=== PATIENT | female | born 1950 | race Caucasian/White ===

== ENCOUNTER 2016-12-02 08:45 | Outpatient (CLI) | payer OTHER | END 2016-12-02 08:46 | disposition home or self-care (01) | LOC: LAB.WCP 08:45 | PROVIDERS: ATTEND Family Medicine | DX: R19.7 Diarrhea, unspecified (principal) | CPT/HCPCS: 87045; 87046; 87177; 87209; 87493 ==

== ENCOUNTER 2016-12-15 08:00 | Outpatient (CLI) | payer OTHER ==
[2016-12-15 13:34] LABS: HEMOGLOBIN A1C 0.53 g/dL
[2016-12-15 13:37] LABS: BASOPHILS # (AUTO) 0.1 10^3/uL (0.0-0.1); BASOPHILS % (AUTO) 1.1 %; EOSINOPHILS # (AUTO) 0.1 10^3/uL (0.0-0.7); EOSINOPHILS % (AUTO) 1.7 %; HCT - HEMATOCRIT 39.7 % (37.0-47.0); HGB - HEMOGLOBIN 13.6 g/dL (12.0-16.0); LYMPHOCYTES # (AUTO) 2.1 10^3/uL (1.5-3.5); LYMPHOCYTES % (AUTO) 31.9 %; MEAN CORPUSCULAR HEMOGLOBIN 30.7 pg (27.0-31.0); MEAN CORPUSCULAR HGB CONC 34.2 g/dL (32.0-36.0); MEAN PLATELET VOLUME 7.6 fL (7.9-10.8); MONOCYTES # (AUTO) 0.5 10^3/uL (0.0-1.0); MONOCYTES % (AUTO) 8.3 %; NEUTROPHILS # (AUTO) 3.7 10^3/uL (1.5-6.6); NUCLEATED RED BLOOD CELLS AUTO 0.1 /100WBC; RED BLOOD COUNT 4.41 10^6/uL (4.20-5.40); RED CELL DISTRIBUTION WIDTH 12.9 % (12.0-15.0); UNCORRECTED WHITE BLOOD COUNT 6.5 x10^3/uL; WHITE BLOOD COUNT 6.5 x10^3/uL (4.8-10.8)
[2016-12-15 13:43] LABS: ALBUMIN/GLOBULIN RATIO 1.6 (1.0-2.2); BILIRUBIN,TOTAL 0.7 mg/dL (0.2-1.0); BUN - BLOOD UREA NITROGEN 13 mg/dL (6-20); CALCIUM 9.2 mg/dL (8.5-10.3); CARBON DIOXIDE - CO2 24 mmol/L (21-32); CHLORIDE 109 mmol/L (101-111); CHOL/HDL RATIO 3.1 (<4.4); CHOLESTEROL 242 mg/dL; CREATININE 0.6 mg/dL (0.4-1.0); GFR - MDRD 100 (>89); GLUCOSE 94 mg/dL (70-100); HDL CHOLESTEROL 77 mg/dL; LDL/HDL RATIO 1.9 (<4.4); POTASSIUM 4.2 mmol/L (3.5-5.0); SODIUM 141 mmol/L (135-145); TOTAL PROTEIN 6.5 g/dL (6.7-8.2); TRIGLYCERIDES 91 mg/dL; VLDL CHOLESTEROL 18 mg/dL
== END 2016-12-15 08:01 | disposition home or self-care (01) ==
LOC: LAB.WCP 08:00
PROVIDERS: ATTEND Family Medicine
DX: R63.4 Abnormal weight loss (principal); Z78.9 Other specified health status
CPT/HCPCS: 36415; 80053; 80061; 83036; 84443; 84550; 85025; 86803; 87389

== ENCOUNTER 2016-12-17 11:31 | Outpatient (CLI) | payer OTHER ==
--- NOTE | 2016-12-18 13:07 | Mammography Report ---
DIGITAL SCREENING MAMMOGRAM: 12/17/2016 CLINICAL INDICATION: A 66-year-old with history of bilateral implants for screening. COMPARISON: 12/2015, 12/2014, 11/2013, 11/2012, 10/2011, 10/2010, 10/2009, 10/2008, 10/2007. TECHNIQUE: Routine CC and MLO projections were obtained of the breasts as well as bilateral implant displaced views. FINDINGS: The breasts demonstrate fatty replacement bilaterally. Bilateral subpectoral implants are stable. No suspicious masses, clustered microcalcifications, or regions of architectural distortion are identified. IMPRESSION: BENIGN FINDINGS. RECOMMENDATION: Routine annual screening unless otherwise clinically indicated. BIRADS CATEGORY 2 - BENIGN FINDINGS. STANDARD QUALIFYING STATEMENTS 1. This examination was reviewed with the aid of Computer-Aided Detection (CAD). 2. A negative or benign imaging report should not delay biopsy if clinically suspicious findings are present. Consider surgical consultation if warranted. More than 5% of cancers are not identified by i maging. 3. Dense breasts may obscure an underlying neoplasm. JOB #: [id number] EXT JOB #:[id number]
== END 2016-12-17 11:32 | disposition home or self-care (01) ==
LOC: DI 11:31
PROVIDERS: ATTEND Family Medicine
DX: Z12.31 Encounter for screening mammogram for malignant neoplasm of breast (principal); Z98.82 Breast implant status
CPT/HCPCS: 77067

== ENCOUNTER 2017-11-10 08:00 | Outpatient (CLI) | payer OTHER ==
[2017-11-10 12:57] LABS: BASOPHILS % (AUTO) 0.9 %; EOSINOPHILS # (AUTO) 0.1 10^3/uL (0.0-0.7); EOSINOPHILS % (AUTO) 1.6 %; HGB - HEMOGLOBIN 13.5 g/dL (12.0-16.0); LYMPHOCYTES # (AUTO) 1.7 10^3/uL (1.5-3.5); LYMPHOCYTES % (AUTO) 29.7 %; MEAN CORPUSCULAR HGB CONC 33.9 g/dL (32.0-36.0); MEAN CORPUSCULAR VOLUME 91.3 fL (81.0-99.0); MEAN PLATELET VOLUME 7.9 fL (7.9-10.8); MONOCYTES # (AUTO) 0.5 10^3/uL (0.0-1.0); MONOCYTES % (AUTO) 8.7 %; NEUTROPHILS # (AUTO) 3.3 10^3/uL (1.5-6.6); NEUTROPHILS % (AUTO) 59.1 %; PLT - PLATELET COUNT 304 10^3/uL (130-450); RED BLOOD COUNT 4.35 10^6/uL (4.20-5.40); RED CELL DISTRIBUTION WIDTH 13.1 % (12.0-15.0); WHITE BLOOD COUNT 5.7 x10^3/uL (4.8-10.8)
[2017-11-10 13:01] LABS: ALBUMIN 4.1 g/dL (3.2-5.5); ALBUMIN/GLOBULIN RATIO 1.6 (1.0-2.2); ALKALINE PHOSPHATASE 68 IU/L (42-121); ALT ALANINE AMINOTRANSFERASE 17 IU/L (10-60); AST ASPARTATE AMINOTRANSFERASE 21 IU/L (10-42); BILIRUBIN,TOTAL 0.7 mg/dL (0.2-1.0); BUN - BLOOD UREA NITROGEN 16 mg/dL (6-20); CALCIUM 9.1 mg/dL (8.5-10.3); CARBON DIOXIDE - CO2 27 mmol/L (21-32); CHLORIDE 107 mmol/L (101-111); CHOL/HDL RATIO 2.8 (<4.4); CHOLESTEROL 210 mg/dL; CREATININE 0.7 mg/dL (0.4-1.0); GFR - MDRD 83 (>89); GLUCOSE 86 mg/dL (70-100); HDL CHOLESTEROL 74 mg/dL; LDL CHOLESTEROL,CALCULATED 121 mg/dL; LDL/HDL RATIO 1.6 (<4.4); SODIUM 141 mmol/L (135-145); TOTAL PROTEIN 6.6 g/dL (6.7-8.2); VLDL CHOLESTEROL 15 mg/dL
[2017-11-10 13:08] LABS: THYROID STIMULATING HORMONE 1.48 uIU/mL (0.34-5.60)
== END 2017-11-10 08:01 | disposition home or self-care (01) ==
LOC: LAB.WCP 08:00
PROVIDERS: ATTEND Family Medicine
DX: M81.0 Age-related osteoporosis without current pathological fracture (principal); E78.5 Hyperlipidemia, unspecified; R20.2 Paresthesia of skin
CPT/HCPCS: 36415; 80053; 80061; 82607; 83721; 84443; 85025

== ENCOUNTER 2018-01-12 13:10 | Outpatient (CLI) | payer OTHER ==
--- NOTE | 2018-01-14 11:14 | MRI Report ---
Procedure Date: 01/12/2018 Accession Number: [id number] / [id number] Procedure: MRI - Cervical Spine W/O CPT Code: FULL RESULT: EXAM: MRI CERVICAL SPINE WITHOUT CONTRAST EXAM DATE: 01/12/2018 01:15 PM. CLINICAL HISTORY: Left cervical radiculopathy. Left arm numbness. Some improvement with physical therapy. COMPARISONS: Radiograph 01/11/2018. TECHNIQUE: Multiplanar, multisequence T1-weighted and fluid-sensitive sequences of the cervical spine without contrast. Other: None. FINDINGS: Neurologic Structures: The visualized posterior fossa structures are unremarkable. No signal abnormality in the visualized spinal cord. Alignment: No scoliosis or spondylolisthesis. Bone Marrow: No fractures. Reactive marrow edema is in the left C6 and C7 facet joints. Interspace Levels/Facets: All visualized intervertebral disks are desiccated. C1-c2: Unremarkable. C2-C3: A mild posterior disk/osteophyte complex results in minimal spinal canal narrowing. C3-C4: A mild posterior disk/osteophyte complex and mild left facet osteoarthritis result in mild spinal canal and bilateral foraminal narrowing. C4-C5: A mild posterior disk/osteophyte complex, moderate left ligamentum flavum hypertrophy, and severe left facet hypertrophy cause moderate spinal canal, mild right foraminal, and severe left foraminal narrowing. C5-C6: Uncovertebral osteophytes and severe right facet osteoarthritis combine with ligamentum flavum hypertrophy to cause moderate spinal canal, severe right foraminal, and moderate left foraminal narrowing. C6-C7: A mild posterior disk/osteophyte complex, moderate ligamentum flavum hypertrophy, and moderate left facet hypertrophy cause mild spinal canal and moderate left foraminal narrowing. C7-T1: Uncovertebral osteophytes result in mild left foraminal narrowing. Musculature: Normal. No edema or fatty atrophy. Other: The paravertebral and prevertebral soft tissues are normal. IMPRESSION: 1. Mild spinal canal and bilateral foraminal narrowing at C3-4 due to disk and postoperative degenerative changes. 2. Moderate spinal canal, mild right foraminal, and severe left foraminal narrowing at C4-5 due to disk and posttraumatic degenerative changes. 3. Moderate spinal canal, severe right foraminal, and moderate left foraminal narrowing at C5-C6 due to disk and posttraumatic degenerative changes. 4. Mild spinal canal and moderate left foraminal narrowing at C6-C7 due to disk and posttraumatic degenerative changes. 5. Mild left foraminal narrowing at C7/T1 due to uncovertebral osteophytes. RADIA
== END 2018-01-12 13:11 | disposition home or self-care (01) ==
LOC: DI 13:10
PROVIDERS: ATTEND Family Medicine
DX: M50.31 Other cervical disc degeneration, high cervical region (principal); M47.892 Other spondylosis, cervical region; M48.02 Spinal stenosis, cervical region
CPT/HCPCS: 72141

== ENCOUNTER 2018-05-23 13:45 | Emergency (ER) | payer OTHER ==
[2018-05-23 14:06] VITALS: BP 140/73
--- NOTE | 2018-05-23 14:43 | ED Physician Documentation ---
History of Present Illness - Stated complaint Stated Complaint: ARM PX - Chief complaint Chief Complaint: Ext Problem - History obtained from History obtained from: Patient - History of Present Illness Timing: Other (This is a 67-year-old woman with many months of pain radiating from the neck down the left arm past the shoulder to the hand with numbness and tingling in the left hand especially of the third and fourth fingers. She had an MRI in January, she had multilevel degenerative changes and neuroforaminal narrowing. She has been on Tylenol 3 and a muscle relaxer without significant relief. She has not yet seen a spinal surgeon.) Review of Systems Constitutional: reports: Reviewed and negative Cardiac: reports: Reviewed and negative Respiratory: reports: Reviewed and negative PD PAST MEDICAL HISTORY - Present Medications Home Medications: Ambulatory Orders Medication Instructions Recorded Confirmed Hydrocodone/Acetaminophen 1 - 2 each PO Q6H PRN #14 tablet 05/23/18 [Hydrocodon-Acetaminophen 5-325] RX: predniSONE [Deltasone] 20 mg PO [id number] #21 tab 05/23/18 - Allergies Allergies/Adverse Reactions: Allergies Allergy/AdvReac Type Severity Reaction Status Date / Time Penicillins Allergy Unknown Verified 03/26/16 21:59 - Social History Does the pt smoke?: No Smoking Status: Never smoker - Immunizations Immunizations are current?: Yes PD ED PE NORMAL - Vitals Vital signs reviewed: Yes - General General: Alert and oriented X 3, No acute distress - Neck Neck: Supple, no meningeal sign, No bony TTP - Extremities Extremities: Other (Diminished sensation in the left C7 distribution but not absent. She has slightly decreased rn urology strength on the left compared to the right but interosseous strength, flexion and extension of the wrist and thumb extension are all symmetric.) - Neuro Neuro: Alert and oriented X 3, Normal speech Results - Vitals Vitals: Vital Signs - 24 hr 05/23/18 14:04 Temperature 36.9 C Heart Rate 92 Respiratory 16 Rate Blood Pressure 140/73 H O2 Saturation 100 Oxygen O2 Source Room air PD MEDICAL DECISION MAKING - ED course ED course: 67-year-old woman with signs and symptoms of cervical radiculopathy based on MRI from January of this year. She will be treated with a steroid taper and a little stronger pain medicine and she is advised to seek consultation from a administration specialist. Departure - Departure Disposition: 01 Home, Self Care Clinical Impression: Cervical radiculopathy at C7 Condition: Good Record reviewed to determine appropriate education?: Yes Instructions: ED Cervical Radiculopathy Prescriptions: Hydrocodone/Acetaminophen [Hydrocodon-Acetaminophen 5-325] 1 - 2 each PO Q6H PRN #14 tablet PRN Reason: pain RX: predniSONE [Deltasone] 20 mg PO [id number] #21 tab Comments: Talk with your doctor about a referral to a spinal specialist to consider epidural steroid shots or decompression. Call your doctor to arrange a follow-up appointment, make the next available appointment. In the interim, return anyt jeffrey if worse or if new symptoms develop. Your blood pressure was elevated today on check into the emergency department. This does not mean that you have hypertension, it is a common phenomenon to come to the emergency department and have elevated blood pressure. I recommend that you see your primary care physician within the week to have it rechecked when you are feeling better. Discharge Date/Time: 05/23/18 14:57
[2018-05-23] MEDS: oxyCODONE 5 MG TABLET PO STA (14:47)
[2018-05-23] MEDS: predniSONE 20 MG TABLET PO STA (14:47)
== END 2018-05-23 14:57 | disposition home or self-care (01) ==
LOC: ED 13:45
DX: M54.12 Radiculopathy, cervical region (principal); R03.0 Elevated blood-pressure reading, without diagnosis of hypertension
CPT/HCPCS: 99283

== ENCOUNTER 2021-03-05 13:10 | Outpatient (CLI) | payer OTHER ==
--- NOTE | 2021-03-05 16:42 | XRAY Report ---
PROCEDURE: Shoulder 2 View LT INDICATIONS: L SHOULDER PX TECHNIQUE: 2 views of the shoulder were acquired. COMPARISON: None. FINDINGS: Bones: No fractures or dislocations. No suspicious bony lesions. Visualized ribs appear intact. M oderate periarticular osteophyte formation at the acromioclavicular joint. Soft tissues: No suspicious soft tissue calcifications. IMPRESSION: Osteoarthritis. No acute fracture. No osseous lesion. If symptoms and/or clinical suspic ion for pathology continue, further assessment with repeat plain films, or advanced imaging (e.g., CT , MRI, or bone scan) is recommended for further assessment. Reviewed by: Abdifatah Boucher MD on 03/05/2021 4:40 PM PDT Approved by: Abdifatah Boucher MD on 03/05/2021 4:40 PM PDT Station ID: [id number]
== END 2021-03-05 23:59 | disposition home or self-care (01) ==
LOC: DI.N 13:10
PROVIDERS: ATTEND Nurse Practitioner
DX: M19.012 Primary osteoarthritis, left shoulder (principal)

== ENCOUNTER 2021-04-15 11:15 | Outpatient (CLI) | payer OTHER ==
--- NOTE | 2021-04-15 15:57 | XRAY Report ---
PROCEDURE: Shoulder 3 View LT INDICATIONS: LEFT SHOULDER PAIN TECHNIQUE: 3 views of the shoulder were acquired. COMPARISON: None. FINDINGS: Bones: No fractures or dislocations. No suspicious bony lesions. Visualized ribs appear intact. T here is a severe acromioclavicular degenerative narrowing. Humeral head is mildly high riding. Cervic al fixation plates are noted. Soft tissues: No suspicious soft tissue calcifications. IMPRESSION: 1. Severe acromioclavicular narrowing. 2. High riding humeral head which can be seen with rotator cuff pathology. Reviewed by: Glo Fournier MD on 04/15/2021 3:56 PM PDT Approved by: Glo Fournier MD on 04/15/2021 3:56 PM PDT Station ID: [id number]
== END 2021-04-15 11:16 ==
LOC: DI.N 11:15
PROVIDERS: ATTEND Physician Assistant
DX: M25.512 Pain in left shoulder (principal); M19.012 Primary osteoarthritis, left shoulder

== ENCOUNTER 2021-07-25 08:00 | Outpatient (CLI) | payer OTHER ==
[2021-07-25 18:17] LABS: FECAL OCCULT BLOOD (FIT) NEGATIVE (NEGATIVE)
== END 2021-07-25 23:59 | disposition home or self-care (01) ==
LOC: LAB.WCP 08:00
PROVIDERS: ATTEND Family Medicine
DX: Z12.11 Encounter for screening for malignant neoplasm of colon (principal)
CPT/HCPCS: 82274

== ENCOUNTER 2021-09-10 08:58 | Outpatient (CLI) | payer OTHER ==
--- NOTE | 2021-09-12 06:41 | Mammography Report ---
BILATERAL DIGITAL SCREENING MAMMOGRAM 3D/2D WITH AUGMENTATION: 09/10/2021 CLINICAL: Routine screening. Comparison is made to exams dated: 12/17/2016 mammogram, 12/09/2015 mammogram, and 12/04/2014 mammogram - [facility]. The tissue of both breasts is predominantly fatty. Bilateral breast implants are stable and intact. No significant masses, calcifications, or other findings are seen in either breast. There has been no significant interval change. IMPRESSION: NEGATIVE There is no mammographic evidence of malignancy. A 1 year screening mammogram is recommended. This exam was interpreted at Station ID: [id number]. NOTE: For mammograms, a report in lay terms will be sent to the patient. Approximately 15% of breast malignancies will not be visualized mammographically. In the management of a palpable breast mass, a negative mammogram must not discourage biopsy of a clinically suspicious lesion. Electronically Signed By: Sejal trotter/penrad:09/10/2021 12:21:19 ACR BI-RADS Category 1: Negative 3341F PARENCHYMAL PATTERN: (F) - The breast(s) demonstrate(s) diffuse fatty replacement. BI-RADS CATEGORY: (1) - 1 RECOMMENDATION: (ANNUAL) - Recommend routine annual screening mammography. [id number] 1 year screening LATERALITY: (B)
== END 2021-09-10 08:59 | disposition home or self-care (01) ==
LOC: DI.N 08:58
DX: Z12.31 Encounter for screening mammogram for malignant neoplasm of breast (principal); Z98.82 Breast implant status

== ENCOUNTER 2022-08-04 07:00 | Outpatient (CLI) | payer OTHER ==
[2022-08-04 11:57] LABS: BASOPHILS # (AUTO) 0.1 10^3/uL (0.0-0.1); BASOPHILS % (AUTO) 0.6 %; EOSINOPHILS # (AUTO) 0.1 10^3/uL (0.0-0.7); EOSINOPHILS % (AUTO) 1.5 %; HCT - HEMATOCRIT 41.7 % (37.0-47.0); HGB - HEMOGLOBIN 13.1 g/dL (12.0-16.0); LYMPHOCYTES # (AUTO) 1.8 10^3/uL (1.5-3.5); LYMPHOCYTES % (AUTO) 21.6 %; MEAN CORPUSCULAR HEMOGLOBIN 30.2 pg (27.0-31.0); MEAN CORPUSCULAR HGB CONC 31.4 g/dL (32.0-36.0); MEAN CORPUSCULAR VOLUME 96.1 fL (81.0-99.0); MEAN PLATELET VOLUME 10.2 fL (7.9-10.8); MONOCYTES # (AUTO) 0.7 10^3/uL (0.0-1.0); MONOCYTES % (AUTO) 7.8 %; NEUTROPHILS # (AUTO) 5.8 10^3/uL (1.5-6.6); NEUTROPHILS % (AUTO) 68.1 %; PLT - PLATELET COUNT 319 10^3/uL (130-450); RED BLOOD COUNT 4.34 10^6/uL (4.20-5.40); RED CELL DISTRIBUTION WIDTH 12.8 % (12.0-15.0); WHITE BLOOD COUNT 8.5 x10^3/uL (4.8-10.8)
[2022-08-04 12:11] LABS: ALBUMIN 4.1 g/dL (3.2-5.5); ALBUMIN/GLOBULIN RATIO 1.6 (1.0-2.2); ALKALINE PHOSPHATASE 70 IU/L (42-121); ALT ALANINE AMINOTRANSFERASE 16 IU/L (10-60); AST ASPARTATE AMINOTRANSFERASE 20 IU/L (10-42); BILIRUBIN,TOTAL 0.7 mg/dL (0.2-1.0); BUN - BLOOD UREA NITROGEN 14 mg/dL (6-20); CALCIUM 9.4 mg/dL (8.5-10.3); CARBON DIOXIDE - CO2 26 mmol/L (21-32); CHLORIDE 106 mmol/L (101-111); CHOL/HDL RATIO 2.8 (<4.4); CHOLESTEROL 249 mg/dL; CREATININE 0.5 mg/dL (0.4-1.0); GFR - MDRD 121 (>89); GLUCOSE 97 mg/dL (70-100); HDL CHOLESTEROL 88 mg/dL; LDL CHOLESTEROL,CALCULATED 150 mg/dL; LDL/HDL RATIO 1.7 (<4.4); POTASSIUM 3.9 mmol/L (3.5-5.0); SODIUM 142 mmol/L (135-145); TOTAL PROTEIN 6.7 g/dL (6.7-8.2); TRIGLYCERIDES 54 mg/dL; VLDL CHOLESTEROL 11 mg/dL
[2022-08-04 12:17] LABS: THYROID STIMULATING HORMONE 2.04 uIU/mL (0.34-5.60)
== END 2022-08-04 07:01 | disposition home or self-care (01) ==
LOC: LAB.N 07:00
PROVIDERS: ATTEND Physician Assistant
DX: E78.5 Hyperlipidemia, unspecified (principal); R53.83 Other fatigue; R42 Dizziness and giddiness
CPT/HCPCS: 36415; 80053; 80061; 83721; 84443; 85025

== ENCOUNTER 2022-08-13 10:36 | Outpatient (CLI) | payer OTHER ==
--- NOTE | 2022-08-13 15:25 | DEXA Report ---
PROCEDURE: Dexa Spine and/or Hip INDICATIONS: OSTEOPENIA, RIGHT KNEE PAIN TECHNIQUE: Dual energy x-ray absorptiometry (DXA) was performed on a [employer] System. Regions measur ed are the AP Spine, femoral neck, and if needed forearm. COMPARISON: DEXA, 12/19/2015. FINDINGS: Lumbar Spine: Bone Mineral Density 1.073 g/cm/cm,T score -0.9, normal. Left Femoral Neck: Bone Mineral Density 0.768 g/cm/cm, T score -1.9, osteopenia. Left Hip: Bone Mineral Density 0.782 g/cm/cm,T score -1.8, osteopenia. (T score greater or equal to -1.0: NORMAL) (T score from -1.1 to -2.4: OSTEOPENIA) (T score less than or equal to -2.5 to: OSTEOPOROSIS) Compared with the last exam, the patient's bone mineral density is decreased by 10.9% in lumbar spine . Her bone mineral density is decreased by 10.8% in left hip. Impression: Based on WHO criteria, the patient has osteopenia. Compared with the last exam, the patient's bone mi neral density has decreased. Patients with diagnosis of osteoporosis or osteopenia should have regular bone mineral density assess ment. For those eligible for Medicare, routine testing is allowed once every 2 years. Testing frequ ency can be increased for patients who have rapidly progressing disease or for those who are receivin g medical therapy to restore bone mass. Reviewed by: Robert Shukla MD on 08/13/2022 3:24 PM PST Approved by: Robert Shukla MD on 08/13/2022 3:24 PM PST Station ID: [id number]
--- NOTE | 2022-08-13 16:07 | XRAY Report ---
PROCEDURE: Knee 2 View RT INDICATIONS: OSTEOPENIA, RIGHT KNEE PAIN TECHNIQUE: 2 views of the right knee(s) were acquired. COMPARISON: None. FINDINGS: Bones: No fractures or dislocations. No suspicious bony lesions. Soft tissues: No joint effusion. No suspicious soft tissue calcifications. IMPRESSION: No acute fracture. No osseous lesion. If symptoms and/or clinical suspicion for patholog y continue, further assessment with repeat plain films, or advanced imaging (e.g., CT, MRI, or bone s can) is recommended for further assessment. Reviewed by: Abdifatah Boucher MD on 08/13/2022 4:06 PM PST Approved by: Abdifatah Boucher MD on 08/13/2022 4:06 PM PST Station ID: [id number]
== END 2022-08-13 10:37 | disposition home or self-care (01) ==
LOC: DI 10:36
PROVIDERS: ATTEND Physician Assistant
DX: M85.89 Other specified disorders of bone density and structure, multiple sites (principal); M25.561 Pain in right knee

== ENCOUNTER 2022-10-05 10:52 | Outpatient (CLI) | payer OTHER ==
--- NOTE | 2022-10-06 15:15 | Mammography Report ---
BILATERAL DIGITAL SCREENING MAMMOGRAM 3D/2D WITH AUGMENTATION: 10/05/2022 CLINICAL: Routine screening. Comparison is made to exams dated: 09/10/2021 mammogram, 12/17/2016 mammogram, 12/09/2015 mammogram, 2014 mammogram, 11/24/2013 mammogram, and 11/23/2012 mammogram - [facility]. There are scattered areas of fibroglandular density in both breasts (category b / 25%-50% glandular t issue). Bilateral breast implants are stable. No significant masses, calcifications, or other findings are seen in either breast. There has been no significant interval change. IMPRESSION: NEGATIVE There is no mammographic evidence of malignancy. A 1 year screening mammogram is recommended. Based on the Tyrer Cuzick model (a risk assessment model) the patients lifetime risk is 3.2% and her 10 year risk is 2.4%. According to the ACR, ACS, and NCCN guidelines, an annual breast MRI exam nayeli g with mammogram is recommended if the patients lifetime risk is 20% or greater. This exam was interpreted at Station ID: [id number]. NOTE: For mammograms, a report in lay terms will be sent to the patient. Approximately 15% of breast malignancies will not be visualized mammographically. In the management of a palpable breast mass, a negative mammogram must not discourage biopsy of a clinically suspicious lesion. Electronically Signed By: Ashley pitt/beltran:10/05/2022 11:34:33 letter sent: No_Letter ACR BI-RADS Category 1: Negative 3341F PARENCHYMAL PATTERN: (A) - The breast(s) demonstrate(s) scattered fibroglandular densities. BI-RADS CATEGORY: (1) - 1 Mammogram [id number] 1 year screening LATERALITY: (B)
== END 2022-10-05 10:53 | disposition home or self-care (01) ==
LOC: DI.N 10:52
DX: Z12.31 Encounter for screening mammogram for malignant neoplasm of breast (principal); Z98.82 Breast implant status

== ENCOUNTER 2022-12-24 08:00 | Outpatient (CLI) | payer OTHER ==
[2022-12-24 18:23] LABS: BILIRUBIN,URINE NEGATIVE (NEGATIVE); GLUCOSE, URINE (UA) NEGATIVE (NEGATIVE); KETONES,URINE (UA) NEGATIVE (NEGATIVE); LEUKOCYTE ESTERASE, URINE SMALL (NEGATIVE); NITRITE,URINE NEGATIVE (NEGATIVE); OCCULT BLOOD,URINE TRACE-INTA (NEGATIVE); PROTEIN,URINE NEGATIVE (NEGATIVE); UROBILINOGEN,URINE 0.2 (NORMAL) E.U./dL (NORMAL)
[2022-12-24 18:26] LABS: CLARITY,URINE CLEAR (CLEAR)
[2022-12-24 18:51] LABS: BACTERIA,URINE None Seen /HPF (None Seen); RBC,URINE 0-5 /HPF (0-5); SQUAMOUS EPITHELIAL CELL,UR NONE SEEN (<= Few); WBC,URINE 0-3 /HPF (0-5)
== END 2022-12-24 23:59 | disposition home or self-care (01) ==
LOC: LAB.N 08:00
PROVIDERS: ATTEND Physician Assistant
DX: R82.998 Other abnormal findings in urine (principal)
CPT/HCPCS: 81001; 87086

== ENCOUNTER 2023-05-05 11:38 | Outpatient (CLI) | payer OTHER ==
--- NOTE | 2023-05-05 15:55 | Ultrasound Report ---
PROCEDURE: Ankle Brachial Index INDICATIONS: BILATERAL CLAUTICATION TECHNIQUE: Ankle-brachial indices were obtained bilaterally and recorded. COMPARISONS: None. FINDINGS: Right ankle brachial index (JING): 1.0 Left ankle brachial index (JING): 0.86 Healing potential: Ankle pressures >55 mm Hg in non-diabetics and >80 mm Hg in diabetics are likely to achieve primary h ealing of ischemic foot ulcers. Toe pressures >30 mm Hg are likely to achieve primary healing of ischemic foot ulcers, toe or transme tatarsal amputations. IMPRESSION: Diminished resting JING of the left lower extremity supports a clinical diagnosis of claudication. Comment: Consider bilateral lower extremity arterial ultrasound. Reviewed by: Delgado Tran MD on 05/05/2023 3:53 PM PDT Approved by: Delgado Tran MD on 05/05/2023 3:53 PM PDT Station ID: [id number]
== END 2023-05-05 11:39 | disposition home or self-care (01) ==
LOC: DI 11:38
PROVIDERS: ATTEND Physician Assistant
DX: I73.9 Peripheral vascular disease, unspecified (principal)
CPT/HCPCS: 93922

== ENCOUNTER 2023-05-23 06:52 | Outpatient (CLI) | payer OTHER ==
--- NOTE | 2023-05-23 12:50 | Ultrasound Report ---
PROCEDURE: Duplex Lwr Ext Arterial Bilat INDICATIONS: BILATERAL CLAUDICATION TECHNIQUE: Color and pulse Doppler interrogation was performed of both lower extremity arterial systems, with im age documentation. COMPARISON: None FINDINGS: Right lower extremity: Common femoral artery: 128 cm/sec, with biphasic flow. Deep femoral artery: 60 cm/sec, with biphasic flow. Proximal superficial femoral artery: 92 cm/sec, with biphasic flow. Mid superficial femoral artery: 111 cm/sec, with triphasic flow. Distal superficial femoral artery: 72 cm/sec, with biphasic flow. Popliteal artery: 52 cm/sec, with biphasic flow. Posterior tibial artery: 52 cm/sec, with biphasic flow. Anterior tibial artery/dorsalis pedis: 66/45 cm/sec, with biphasic flow. Flores-scale imaging description: Plaque is seen at the common femoral artery Left lower extremity: Common femoral artery: 84 cm/sec, with biphasic flow. Deep femoral artery: 90 cm/sec, with biphasic flow. Proximal superficial femoral artery: 24 cm/sec, with biphasic flow. Mid superficial femoral artery: 32 cm/sec, with multiphasic flow. Distal superficial femoral artery: 22 cm/sec, with monophasic flow. Popliteal artery: 30 cm/sec, with monophasic flow. Posterior tibial artery: 15 cm/sec, with monophasic flow. Anterior tibial artery/dorsalis pedis: 14/16 cm/sec, with monophasic flow. Flores-scale imaging description: Plaques in the common femoral artery. Moderate to severe plaque is s een at the proximal to distal superficial femoral artery. IMPRESSION: 1.Plaque is seen at the right common femoral artery with biphasic waveforms throughout with normal ve locities. 2.Moderate to severe plaque of the proximal to distal superficial femoral artery with low velocities and monophasic waveforms throughout the rest of the lower extremity. Reviewed by: Marvin Swain MD on 05/23/2023 12:48 PM PST Approved by: Marvin Swain MD on 05/23/2023 12:48 PM PST Station ID: [id number]
== END 2023-05-23 06:53 | disposition home or self-care (01) ==
LOC: DI 06:52
PROVIDERS: ATTEND Physician Assistant
DX: I70.203 Unspecified atherosclerosis of native arteries of extremities, bilateral legs (principal)
CPT/HCPCS: 93925

== ENCOUNTER 2023-06-11 08:00 | Outpatient (CLI) | payer OTHER ==
[2023-06-11 18:29] LABS: BILIRUBIN,URINE NEGATIVE (NEGATIVE); GLUCOSE, URINE (UA) NEGATIVE (NEGATIVE); KETONES,URINE (UA) NEGATIVE (NEGATIVE); LEUKOCYTE ESTERASE, URINE SMALL (NEGATIVE); NITRITE,URINE NEGATIVE (NEGATIVE); OCCULT BLOOD,URINE TRACE-INTA (NEGATIVE); PH,URINE 5.5 PH (5.0-7.5); PROTEIN,URINE NEGATIVE (NEGATIVE); UROBILINOGEN,URINE 0.2 (NORMAL) E.U./dL (NORMAL)
[2023-06-11 18:38] LABS: CLARITY,URINE CLEAR (CLEAR)
[2023-06-11 18:40] LABS: BACTERIA,URINE Rare /HPF (None Seen); RBC,URINE 0-5 /HPF (0-5); SQUAMOUS EPITHELIAL CELL,UR RARE Squamous (<= Few)
== END 2023-06-11 23:59 | disposition home or self-care (01) ==
LOC: LAB.N 08:00
PROVIDERS: ATTEND Physician Assistant
DX: R39.89 Other symptoms and signs involving the genitourinary system (principal)
CPT/HCPCS: 81001; 87086

== ENCOUNTER 2023-07-07 08:00 | Outpatient (CLI) | payer OTHER ==
[2023-07-07 16:03] LABS: BILIRUBIN,URINE NEGATIVE (NEGATIVE); GLUCOSE, URINE (UA) NEGATIVE (NEGATIVE); KETONES,URINE (UA) NEGATIVE (NEGATIVE); LEUKOCYTE ESTERASE, URINE LARGE (NEGATIVE); NITRITE,URINE NEGATIVE (NEGATIVE); OCCULT BLOOD,URINE TRACE-INTA (NEGATIVE); PROTEIN,URINE NEGATIVE (NEGATIVE); UROBILINOGEN,URINE 0.2 (NORMAL) E.U./dL (NORMAL)
[2023-07-07 16:12] LABS: CLARITY,URINE CLOUDY (CLEAR)
[2023-07-07 16:47] LABS: BACTERIA,URINE Rare /HPF (None Seen); RBC,URINE 0-5 /HPF (0-5); SQUAMOUS EPITHELIAL CELL,UR RARE Squamous (<= Few)
== END 2023-07-07 23:59 | disposition home or self-care (01) ==
LOC: LAB 08:00
PROVIDERS: ATTEND Urology
DX: R82.998 Other abnormal findings in urine (principal)
CPT/HCPCS: 81001; 87086

== ENCOUNTER 2023-07-26 12:41 | Outpatient (CLI) | payer OTHER ==
--- NOTE | 2023-07-26 14:46 | CT Report ---
PROCEDURE: Abdomen/Pelvis WO INDICATIONS: HIST OF KIDNEY STONES TECHNIQUE: A CT scan of the abdomen and pelvis was performed without the use of intravenous contrast. Images we re recorded and evaluated at appropriate window settings. Reformats: coronal and sagittal. For radiat ion dose reduction, the following was used: automated exposure control, adjustment of mA and/or kV ac cording to patient size. COMPARISON: None. FINDINGS: Image quality: Excellent. Lung bases and heart: Breast implants. Mild volume loss in the right middle lobe.. Liver: No contour-deforming mass. Gallbladder and biliary tree: No radiopaque stones or wall thickening. No biliary dilation. Spleen: No splenomegaly. Pancreas: No pancreatic ductal dilation. Adrenals: No adrenal nodule. Kidneys and ureters: No hydronephrosis. No renal cystic lesion which requires follow up. No solid mas s. Small burden of nonobstructing left-sided nephrolithiasis, measuring no greater than 4 mm. Bowel and peritoneum: No bowel distension. No pathologic free fluid. Diverticulosis without evidence of diverticulitis. Lymph nodes: No central or retroperitoneal adenopathy. Vessels: No infrarenal aortic aneurysm. PELVIS Reproductive organs: Unremarkable. Bladder: No wall thickness, accounting for underdistention. Pelvic lymph nodes: No pelvic adenopathy by size criteria. Bones: No aggressive osseous abnormality. Other: No significant ventral or inguinal hernia. IMPRESSION: Small burden of nonobstructing left-sided nephrolithiasis. Reviewed by: Skip Dorantes MD on 07/26/2023 2:44 PM PST Approved by: Skip Dorantes MD on 07/26/2023 2:44 PM PST Station ID: [id number]
== END 2023-07-26 12:42 | disposition home or self-care (01) ==
LOC: DI 12:41
PROVIDERS: ATTEND Urology
DX: N20.0 Calculus of kidney (principal)

== ENCOUNTER 2023-08-12 10:49 | Outpatient (CLI) | payer OTHER ==
[2023-08-12] MEDS ORDERED: iohexoL-300 100 ML VIAL ONE (11:00)
[2023-08-12 11:18] LABS: CREATININE 0.6 mg/dL (0.6-1.3)
[2023-08-12] MEDS: iohexoL-300 100 ML VIAL IVP ONE (12:46)
--- NOTE | 2023-08-12 13:44 | CT Report ---
PROCEDURE: IVP INDICATIONS: HEMATURIA CONTRAST: Omni 300 140ml TECHNIQUE: A [address] of the abdomen and pelvis was performed. Non-contrast and contrast images were recorded and evaluated at appropriate window settings. Images were recorded and evaluated at appropriate windo w settings. Reformats: coronal and sagittal. For radiation dose reduction, the following was used: au tomated exposure control, adjustment of convex left scoliosis. 3 interval casting with improved align ment at the tibia and fibula fractures. MA and/or kV according to patient size. COMPARISON: CT abdomen pelvis 07/26/2023. FINDINGS: Image quality: Diagnostic. Urinary system: Both kidneys are normal in size. Stable appearance of few nonobstructing left-sided renal stones measuring 4 mm. No right-sided renal stones. No hydronephrosis. No solid masses or compl ex cysts which require follow up. The opacified renal calyces and ureters appear normal, without fill ing defect. Bladder wall thickness is normal, accounting for underdistention. No calcified bladder s tones. No filling defect within the opacified bladder. OTHER Lower chest: Unremarkable. Liver: No solid mass. Gallbladder and biliary tree: No radiopaque stones or wall thickening. No biliary dilation. Spleen: No splenomegaly. Pancreas: No pancreatic ductal dilation. Adrenals: Thickened appearance of the left adrenal gland without well-defined nodule. No right adrena l nodules. Stomach, bowel and peritoneum: No bowel distension. No pathologic free fluid. Diverticulosis without evidence of diverticulitis. Abdominal Lymph nodes: No central or retroperitoneal adenopathy. Vessels: Normal in caliber. Calcified and noncalcified vascular plaques resulting in areas of mild st enosis of the aorta and its branching vessels. Reproductive organs: Unremarkable. Pelvic Lymph nodes: Unremarkable. Bones: No aggressive osseous abnormality. Other: None. IMPRESSION: Stable small burden of nonobstructing left-sided nephrolithiasis. No filling defects within the opaci fied portions of the collecting system. Reviewed by: Marvin Swain MD on 08/12/2023 1:42 PM PST Approved by: Marvin Swain MD on 08/12/2023 1:42 PM PST Station ID: [id number]
== END 2023-08-12 10:50 | disposition home or self-care (01) ==
LOC: LAB 10:49
PROVIDERS: ATTEND Urology
DX: R31.21 Asymptomatic microscopic hematuria (principal); N20.0 Calculus of kidney
CPT/HCPCS: 36415; 74178; 82565; Q9967

== ENCOUNTER 2023-08-18 09:18 | Outpatient (CLI) | payer OTHER ==
[2023-08-18 12:00] LABS: BASOPHILS % (AUTO) 0.8 %; EOSINOPHILS # (AUTO) 0.2 10^3/uL (0.0-0.7); EOSINOPHILS % (AUTO) 3.1 %; HCT - HEMATOCRIT 41.9 % (37.0-47.0); HGB - HEMOGLOBIN 13.3 g/dL (12.0-16.0); LYMPHOCYTES # (AUTO) 1.6 10^3/uL (1.5-3.5); LYMPHOCYTES % (AUTO) 30.6 %; MEAN CORPUSCULAR HEMOGLOBIN 30.3 pg (27.0-31.0); MEAN CORPUSCULAR HGB CONC 31.7 g/dL (32.0-36.0); MEAN CORPUSCULAR VOLUME 95.4 fL (81.0-99.0); MEAN PLATELET VOLUME 9.4 fL (7.9-10.8); MONOCYTES # (AUTO) 0.6 10^3/uL (0.0-1.0); MONOCYTES % (AUTO) 11.4 %; NEUTROPHILS # (AUTO) 2.8 10^3/uL (1.5-6.6); NEUTROPHILS % (AUTO) 53.9 %; PLT - PLATELET COUNT 331 10^3/uL (130-450); RED BLOOD COUNT 4.39 10^6/uL (4.20-5.40); RED CELL DISTRIBUTION WIDTH 12.1 % (12.0-15.0); WHITE BLOOD COUNT 5.1 x10^3/uL (4.8-10.8)
[2023-08-18 12:36] LABS: ALBUMIN 4.3 g/dL (3.2-5.5); ALBUMIN/GLOBULIN RATIO 2.3 (1.0-2.2); ALKALINE PHOSPHATASE 70 IU/L (42-121); ALT ALANINE AMINOTRANSFERASE 22 IU/L (10-60); AST ASPARTATE AMINOTRANSFERASE 22 IU/L (10-42); BILIRUBIN,TOTAL 0.6 mg/dL (0.2-1.0); BUN - BLOOD UREA NITROGEN 14 mg/dL (6-20); CALCIUM 9.4 mg/dL (8.5-10.3); CARBON DIOXIDE - CO2 30 mmol/L (21-32); CHLORIDE 109 mmol/L (101-111); CHOL/HDL RATIO 1.9 (<4.4); CHOLESTEROL 176 mg/dL; CREATININE 0.7 mg/dL (0.6-1.3); GFR - MDRD 82 (>89); GLUCOSE 92 mg/dL (74-104); HDL CHOLESTEROL 95 mg/dL; LDL CHOLESTEROL,CALCULATED 66 mg/dL; LDL/HDL RATIO 0.7 (<4.4); POTASSIUM 4.2 mmol/L (3.5-4.5); SODIUM 142 mmol/L (135-145); TOTAL PROTEIN 6.2 g/dL (6.4-8.9); TRIGLYCERIDES 74 mg/dL (48-352); VLDL CHOLESTEROL 15 mg/dL
[2023-08-18 14:52] LABS: THYROID STIMULATING HORMONE 2.06 uIU/mL (0.34-5.60)
== END 2023-08-18 09:19 | disposition home or self-care (01) ==
LOC: LAB.N 09:18
PROVIDERS: ATTEND Physician Assistant
DX: E78.5 Hyperlipidemia, unspecified (principal); R00.2 Palpitations
CPT/HCPCS: 36415; 80053; 80061; 83721; 84443; 85025

== ENCOUNTER 2024-02-23 08:05 | Outpatient (CLI) | payer OTHER ==
--- NOTE | 2024-02-23 12:55 | Ultrasound Report ---
PROCEDURE: Renal (Retroperitoneal) INDICATIONS: KIDNEY STONES TECHNIQUE: Real-time scanning was performed of the retroperitoneal organs, with image documentation. COMPARISON: 08/12/2023 FINDINGS: Kidneys: Kidneys are normal in size. Right kidney measures 10.8 cm long; left kidney measures 10.7 cm long. Right renal cortical thickness is 0.9 cm; left renal cortical thickness is 0.9 cm. No abran d masses, hydronephrosis, or nephrolithiasis. Bladder: Pre-void bladder volume is 266 mL. Post-void residual is 0 mL. Pre-void images demonstrat e no intraluminal masses or stones. On pre-void images, both ureteral jets are noted with color Dopp ler interrogation. (Of note, ureteral jets may not be detectable in up to 25% of cases due to insuff icient differences in specific gravity between ureteral and bladder urine). Miscellaneous: No free abdominal fluid. IMPRESSION: No nephrolithiasis on this examination. Findings could be related to technique rather than interval p assage. No hydronephrosis. Reviewed by: Skip Dorantes MD on 02/23/2024 12:53 PM PDT Approved by: Skip Dorantes MD on 02/23/2024 12:53 PM PDT Station ID: [id number]
== END 2024-02-23 08:06 | disposition home or self-care (01) ==
LOC: DI 08:05
PROVIDERS: ATTEND Urology
DX: Z87.442 Personal history of urinary calculi (principal)